=== PATIENT | female | born 1990 | race Caucasian/White ===

== ENCOUNTER 2020-09-17 14:38 | Emergency (ER) | payer BC ==
[~2020-09-17] VITALS: Ht 167.6 cm; Wt 80.3 kg
== END 2020-09-17 14:50 | disposition home or self-care (01) ==
LOC: ER 14:38
DX: R13.10 Dysphagia, unspecified (principal)
CPT/HCPCS: 99283

== ENCOUNTER → 2022-12-21 | Outpatient (CLI) | payer BC ==
[2022-12-22 11:12] LABS: Candida species (DNA Probe) Negative (NEGATIVE); G. vaginalis (DNA Probe) Negative (NEGATIVE); T. vaginalis (DNA Probe) Negative (NEGATIVE)
== END | disposition home or self-care (01) ==
LOC: LAB SHORT 16:30 → LAB 16:30
PROVIDERS: Physician Assistant
DX: R35.0 Frequency of micturition (principal)
CPT/HCPCS: 87086; 87480; 87510; 87660

== ENCOUNTER 2024-04-26 08:21 | Day surgery (SDC) | payer OTHER ==
[~2024-04-26] VITALS: Ht 167.6 cm; Wt 76.9 kg
[2024-04-26] MEDS ORDERED: propofoL 50 ML IV ONE (09:23)
[2024-04-26] MEDS ORDERED: Lactated Ringer's 1,000 ML IV ONE ×2 (09:23→09:40)
--- NOTE | 2024-04-26 10:09 | NUR ---
04/26/24 1009 Myah Null PT. WEARING BRACE ON RIGHT WRIST, HAS A FRACTURE ON RIGHT ARM
[2024-04-26 10:56] VITALS: BP 103/78
== END 2024-04-26 10:43 | disposition home or self-care (01) ==
LOC: ORSCSDS 08:21
PROVIDERS: Internal Medicine Gastroenterology
PROC: 0D757ZZ Dilation of Esophagus, Via Natural or Artificial Opening (ICD-10-PCS; principal; 2024-04-26 09:45)
PROC: 0DB68ZX Excision of Stomach, Via Natural or Artificial Opening Endoscopic, Diagnostic (ICD-10-PCS; principal; 2024-04-26 09:45)
PROC: 0DB58ZX Excision of Esophagus, Via Natural or Artificial Opening Endoscopic, Diagnostic (ICD-10-PCS; principal; 2024-04-26 09:45)
DX: R13.10 Dysphagia, unspecified (principal); K31.7 Polyp of stomach and duodenum
CPT/HCPCS: 88305; J2704; J7120